=== PATIENT | female | born 1955 | race Caucasian/White ===

== ENCOUNTER → 2019-01-25 | Day surgery (SDC) | payer BC, OTHER ==
--- NOTE | 2019-01-20 09:43 | Diagnostic Imaging Report ---
EXAM: CHEST 2 VIEWS, PA and lateral DATE: 01/20/2019 Time stamp on exam: 9:16 AM INDICATION: Cough COMPARISON: None FINDINGS: LINES/TUBES: None LUNGS: No consolidations or edema. PLEURA: No effusions or pneumothorax. HEART AND MEDIASTINUM: Normal size and contour. Minimal prominence of the ascending aorta. BONES AND SOFT TISSUES: No acute findings. IMPRESSION: No acute thoracic abnormality. Signed by: Dr. Luis Galan DO on 01/20/2019 9:40 AM
[2019-01-20 09:49] LABS: BASOPHILS % 0.8 % (0.0-1.0); EOSINOPHILS # (AUTO) 0.3 (0.0-0.4); EOSINOPHILS % 4.8 % (0.0-6.0); HEMATOCRIT 34.9 % (34.2-44.1); HEMOGLOBIN 11.3 g/dL (12.0-16.0); LYMPHOCYTES # (AUTO) 1.1 (1.0-3.2); LYMPHOCYTES % 21.4 % (18.0-39.1); MEAN CORPUSCULAR HEMOGLOBIN 31.3 pg (28-32); MEAN CORPUSCULAR HGB CONC 32.4 g/dL (31-35); MEAN CORPUSCULAR VOLUME 96.7 fL (81-99); MONOCYTES # (AUTO) 0.4 (0.2-0.8); MONOCYTES % 7.1 % (4.4-11.3); NEUTROPHILS # (AUTO) 3.4 (2.1-6.9); NEUTROPHILS % 65.7 % (38.7-80.0); PLATELET COUNT 210 x10e3/uL (140-360); RED BLOOD COUNT 3.61 x10e6/uL (3.6-5.1)
[2019-01-20 10:08] LABS: ALANINE AMINOTRANSFERASE 15 IU/L (0-55); ALBUMIN 4.1 g/dL (3.5-5.0); ALBUMIN/GLOBULIN RATIO 1.2 (0.8-2.0); ALKALINE PHOSPHATASE 56 IU/L (40-150); ANION GAP 11.8 mmol/L (8-16); BLOOD UREA NITROGEN 22 mg/dL (7-26); BUN/CREATININE RATIO 26 (6-25); CALCIUM 9.9 mg/dL (8.4-10.2); CARBON DIOXIDE 29 mmol/L (22-29); CHLORIDE 106 mmol/L (98-107); CREATININE, SERUM 0.86 mg/dL (0.57-1.11); EST GLOMERULAR FILTRATION RATE > 60 ML/MIN (60-); GLUCOSE 99 mg/dL (74-118); POTASSIUM 4.8 mmol/L (3.5-5.1); SODIUM 142 mmol/L (136-145)
[~2019-01-25] MED LIST: ACETAMINOPHEN 1000 MG/100 ML IV ONE; BUPIVACAINE 0.5%/EPI 30 ML SDV INJ ONE; CEFAZOLIN SOD 2 GM/D5W 50ML 50 ML IV ONE; DEXAMETHASONE SOD PHOS INJ 4 MG/ML VIAL ONE; EPHEDRINE SULFATE INJ 50 MG/10 ML SYR ONE; ESTROGENS CONJUGATED VAGINAL CR 45 GM TUBE PV ONE; FENTANYL CITRATE/PF 100MCG/2 ML INJ ONE; LEVOTHYROXINE75 MCG PO; LIDOCAINE HCL 2% LOCAL INJ 5 ML SDV VIAL INJ ONE; LISINOPRIL10 MG PO; METOCLOPRAMIDE HCL 10 MG/2ML VIAL ONE; MIDAZOLAM HCL 2 MG/2 ML VIAL ONE; ONDANSETRON HCL INJ 2MG/ML 2ML 2 MG/ML VIAL ONE; PROPOFOL IV EMULSION 10 MG/ML 20 ML VIAL ONE; ROCURONIUM BROMIDE 10 MG/ML 5ML VIAL ONE; SEVOFLURANE INHAL SOLN 250 ML PEN BTL ONE
--- OUTSIDE RECORDS SUMMARY | 2019-01-25 07:18 | XMS REPORT ---
[facility] Address Unknown Phone Unavailable Care Team Providers Care Hammer Fitter Name Role Phone Sunday LINARES Unavailable Unavailable Problems This patient has no known problems. Allergies, Adverse Reactions, Alerts This patient has no known allergies or adverse reactions. Medications This patient has no known medications. Results Test Description Test Time Test Comments Text Results Atomic Results Result Comments CHEST 2 VIEWS 2019-01-20 09:38:00 [place] [address] Patient Name: GEOVANNA WALKER MR #: [id number] : 1955 Age/Sex: 63/F Req #: [id number] Adm Physician: Ordered by: ADIN LINARES MD Report #: [id number] Location: OR Room/Bed: Procedure: [id number] DX/CHEST 2 VIEWS Exam Date: 01/20/19 Exam Time: 919 REPORT STATUS: Signed EXAM: CHEST 2 VIEWS, PA and lateral DATE: 01/20/[address] amp on exam: 9:16 AM INDICATION: Cough COMPARISON: None FINDINGS: LINES/TUBES: None LUNGS: No consolidations or edema. PLEURA: No effusions or pneumothorax. HEART AND MEDIASTINUM: Normal size and contour. Minimal prominence of the ascending aorta. BONES AND SOFT TISSUES: No acute findings. IMPRESSION: No acute thoracic abnormality. Signed by: Dr. Nicho Galan DO on 01/20/2019 9:40 AM Dictated By: NICHO GALAN DO 9 Transcribed By: ROME on 01/20/19939 COPY TO: ADIN LINARES MD
--- OUTSIDE RECORDS SUMMARY | 2019-01-25 07:18 | XMS REPORT | Summary of Care ---
Author Author MALINI POTTS M.D. Organization Unknown Address [facility] Phone Unavailable Care Team Providers Care Citrix Architect Name Role Phone MALINI POTTS M.D. 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 Plan of Care Name Dates Details Planned Observations Planned Goals not documented Planned Encounters Appointment; MALINI POTTS M.D. On: 27-Apr-2018 9:45 Interventions Provided Labs/Procedures/Imaging* [U] XRAY KNEE 4 OR MORE VWS RIGHT 68084; Done: 23 Feb 2018 Plan* Patient Education/Instructions: * Patient Education Provided * Reassurance * Patient/Parent to call or return with any abnormal changes * NSAIDS and ICE application for continued pain and swelling. * Orders: * Physical Therapy * Medications: * Medications (prescribed or recommended at this visit): * - Nonsteroidal anti-inflammatory drugs prescribed * Acetaminophen * - Topical anti-inflammatory prescribed. * Follow Up: * Return to the clinic in 2 months or as needed. * X-rays to be completed at next visit: No follow up Xrays required Instructions Name Dates Details Instructions not documented Encounters Appointment; MALINI POTTS M.D. Encounter Diagnosis: Problem not documented On: 23-Feb-2018 13:00
[2019-01-25 14:25] VITALS: BP 119/80
--- NOTE | 2019-02-11 04:44 | Operative Report ---
DATE OF PROCEDURE: 01/25/2019 SURGEON: Estee Jalloh MD RING CUTTER LATHE OPERATOR: None. PREOPERATIVE DIAGNOSIS: Prolapse of vaginal vault after hysterectomy. POSTOPERATIVE DIAGNOSIS: Prolapse of vaginal vault after hysterectomy. PROCEDURES PERFORMED: Anterior and posterior colporrhaphy with sacrospinous colpopexy. ANESTHESIA: General. ESTIMATED BLOOD LOSS: 50 mL. COMPLICATIONS: None. FINDINGS: A 4th degree apical prolapse, 4th degree cystocele, 2nd degree rectocele. SPECIMENS: None. INDICATIONS: The patient is a [id number]-female with history of prior hysterectomy with subsequent vaginal vault prolapse. PROCEDURE NOTE: The risks, benefits, indications, and alternatives of the procedure were reviewed with the patient and informed consent was obtained. The patient was taken to the operating room, where general anesthesia was obtained. She was then placed in the dorsal lithotomy position using candy-cane stirrups, prepped and draped in typical sterile fashion. The lateral edges of the vaginal cuff was then held with Allis clamp on tension while a solution of 0.5% Marcaine with epinephrine was injected just below the vaginal mucosa throughout the area of the cystocele. Several Allis clamps were placed 3 to 4 cm apart up the midline of the anterior vaginal wall. A transverse incision was then made in the vaginal mucosa just superior to the vaginal cuff. The edges of the vaginal mucosa were held with the hemostat and the Metzenbaum scissors were used to undermine the mucosa from the underlying fascia. The mucosa was then opened with the scissors in the midline to within 1 cm of the urethral meatus. The vagina was opened, edges of the mucosa were grasped with hemostats. The fascia was then from the vaginal mucosa using both sharp and blunt dissection until the bladder and urethra were from the vaginal mucosa and clearly identified. A finger was then inserted through the incision in the vaginal mucosa and used to bluntly dissect the rectovaginal space on the patient's right side. The ischial spine and sacrospinous ligaments were palpated and loose areolar tissue was bluntly dissected off the ligament. A zone approximately 1.5 cm medial to the ischial spine was selected for insertion of the suture. A [employer] SLIM Suture Capturing device was then loaded with 0 Vicryl suture and was introduced into the space and passed through the sacrospinous ligament. This entire procedure was then repeated on the patient's left sacrospinous ligament. The ends of the suture previously inserted through the sacrospinous ligaments were then placed through the muscular layer of the vagina using the [employer] SLIM device. Attention was then returned to the anterior repair, where the bladder was reduced using 3-0 plain gut in a pursestring fashion in order to reduce the bladder allowing for placement of plication sutures, 0-Vicryl sutures were thus placed in the pubovesicocervical fascia starting approximately 1 cm below the urethral meatus. All of the remaining fascia was plicated in the midline with multiple interrupted 0-Vicryl sutures until the entire cystocele had been reduced. The edges of the vaginal mucosa were then held on tension and the excessive vaginal mucosa was trimmed away using the Sarmiento scissors. The vaginal mucosa was then sutured in midline with continuous 0 Vicryl. The surgical sites were inspected and found to be hemostatic. Attention was then turned to the posterior repair where the apices of the posterior fourchette were grasped with Allis clamps and a solution of 0.5% Marcaine with epinephrine was injected just below the vaginal mucosa throughout the area of the rectocele. A transverse incision was then made with the scalpel at the level of the hymenal ring. An additional Allis clamp was placed in the midline at the top of the rectocele and 2 hemostats were placed at the edges of the mucosa for retraction. Metzenbaum scissors were then inserted under the posterior vaginal mucosa dissecting the posterior mucosa off the rectovaginal fascia. A midline incision was then made in the mucosa. This process was repeated until the superior apex of the rectocele was reached. Interrupted sutures of 0-Vicryl were placed to reapproximate the superficial transverse perinei muscle and levator ani muscle respectively. The vagina was then closed over this repair using running 2-0 Vicryl suture. The bulbocavernosus was reapproximated in the midline with the single interrupted 2-0 Vicryl suture. The perineum was repaired using 2-0 Vicryl in a subcuticular fashion. The vagina was copiously irrigated and noted to be hemostatic in all sutures sites. Vaginal packing soaked in Premarin cream was placed within the vagina and all instruments were removed. The patient was awakened from general anesthesia and brought to the recovery room in stable condition. All sponge, lap, needle, and instrument counts were correct x2. MD NIKKIE Bhatia/MELIA /[id number]
== END | disposition home or self-care (01) ==
LOC: OR 07:16
PROVIDERS: ATTEND Obstetrics & Gynecology Obstetrics
DX: N99.3 Prolapse of vaginal vault after hysterectomy (principal); I10 Essential (primary) hypertension; E03.9 Hypothyroidism, unspecified; G47.33 Obstructive sleep apnea (adult) (pediatric); Z01.810 Encounter for preprocedural cardiovascular examination; Z01.812 Encounter for preprocedural laboratory examination; Z01.818 Encounter for other preprocedural examination
CPT/HCPCS: 36415; 57260; 57282; 71046; 80053; 85025; 93005; J0131; J0690; J1100; J2001; J2250; J2405; J2704; J2765